=== PATIENT | male | born 1985 | race Native Hawaiian/Other Pacific Islander ===

== ENCOUNTER 2019-04-01 12:16 | Emergency (ER) | payer BC ==
[~2019-04-01] VITALS: Ht 188 cm; Wt 104.3 kg
[~2019-04-01 12:16] MED LIST: IBUPROFEN800 MG PO
[2019-04-01] MEDS ORDERED: MOTRIN IB200 MG PO (12:31)
[2019-04-01] MEDS ORDERED: OXYCODONE HCL5 MG PO (13:51)
[2019-04-01] MEDS ORDERED: IBU800 MG PO (13:51)
== END 2019-04-01 14:31 | disposition home or self-care (01) ==
LOC: ED 12:16
DX: S83.92XA Sprain of unspecified site of left knee, initial encounter (principal); V86.56XA Driver of dirt bike or motor/cross bike injured in nontraffic accident, initial encounter
CPT/HCPCS: 73560; 90471; 90715; 99283-25